=== PATIENT | female | born 1985 | race Hispanic/Latino ===

== ENCOUNTER 2018-01-24 11:05 | Emergency (ER) | payer MEDICAID ==
[2018-01-24 11:16] VITALS: BP 133/73
[2018-01-24] MEDS ORDERED: ROCEPHIN IM ONE (12:50)
[2018-01-24] MEDS ORDERED: FLAGYL PO ONE (12:50)
[2018-01-24] MEDS ORDERED: ZITHROMAX PO ONE (12:50)
[2018-01-24] MEDS ORDERED: XYLOCAINE 1% MPF 5 mL INFILTRATI ONE (12:50)
[2018-01-24] MEDS ORDERED: TYLENOL PO ONE (12:50)
--- NOTE | 2018-01-24 13:12 | Emergency Department Report ---
Chief Complaint: Hyperglycemia Stated Complaint: BLOOD SUGAR ABNORMAL Time Seen by Provider: 01/24/18 12:26 - HPI History of Present Illness: The patient is a 32-year-old female with a history of diabetes, on insulin, and whom presents for evaluation of vaginal discharge and abdominal cramping. The patient reports 3 days of thick white vaginal discharge similar to previous yeast infections. She states that she has also spent some cramping of the lower belly for the same period of time. Has secondary complaint of recurrent hyperglycemia for the past couple of days. The patient denies fever, chills, night sweats, diarrhea, blood in the stool, dark tarry stool, dysuria, hematuria , flank pain, vaginal bleeding, inability to pass flatus. - Exam Vital Signs: Vital Signs 01/24/18 11:11 Temperature 98.1 F Pulse Rate 91 H Respiratory 18 Rate Blood Pressure 133/73 O2 Sat by Pulse 99 Oximetry MSE screening note: Focused history and physical exam performed. Due to findings the following was ordered: ED Disposition for MSE Condition: Stable Prescriptions: Fluconazole [Diflucan TAB] 150 mg PO ONCE #1 tablet metroNIDAZOLE [Flagyl] 500 mg PO Q12HR #14 tab Referrals: PRIMARY CARE, [Primary Care Provider] - 3-5 Days
[2018-01-24] MEDS ORDERED: ZOFRAN ODT ONE (13:41)
[2018-01-24] MEDS ORDERED: ZOFRAN ODT PO ONE (13:45)
--- NOTE | 2018-01-24 14:25 | Emergency Department Report ---
ED Female HPI - General Chief complaint: Hyperglycemia Stated complaint: BLOOD SUGAR ABNORMAL Time Seen by Provider: 01/24/18 12:26 Source: patient Mode of arrival: Ambulatory Limitations: No Limitations - History of Present Illness Initial comments: This is a 32-year-old female that presents with vaginal discharge and elevated blood sugars for the past 3-4 days. Patient is a type I diabetic they can Novolin R insulin 30-50 units daily. She is followed by aircraft cleaner Dr. Keller. Patient reports giving herself 80 units yesterday she could not get her sugars below to 280s. She noticed increase of thick white discharge past 2 days and has been taking Monistat with no improvement of symptoms. Patient reports discharge has increased since using Monistat with a foul odor. Denies fever, chills, night sweats, diarrhea, blood in the stool, dark tarry stool, dysuria, hematuria, flank pain, vaginal bleeding, inability to pass flatus. MD Complaint: vaginal discharge (quite) -: days(s) (3-4 days) Location: labia Radiation: non-radiating Severity: mild Severity scale (0 -10): 3 Consistency: constant Improves with: none Worsens with: none Are you Now?: No Last Menstrual Period: 12/22/17 EDC: 09/28/18 Associated Symptoms: vaginal discharge - Related Data Sexually active: Yes : 3 Para: 2 A: 1 Previous Rx's Medication Instructions Recorded Last Taken Type RX: metroNIDAZOLE [Flagyl TAB] 500 mg PO Q12HR 7 Days #14 tab 01/24/18 Unknown Rx Sulfamethoxazole/Trimethoprim 1 each PO BID 3 Days #6 tablet 01/24/18 Unknown Rx [Bactrim DS TAB] Allergies Allergy/AdvReac Type Severity Reaction Status Date / Time No Known Allergies Allergy Unverified 01/24/18 11:16 ED Review of Systems ROS: Stated complaint: BLOOD SUGAR ABNORMAL Other details as noted in HPI Constitutional: denies: chills, fever Respiratory: denies: cough, shortness of breath, wheezing Cardiovascular: denies: chest pain, palpitations Gastrointestinal: denies: abdominal pain, nausea, vomiting, diarrhea Genitourinary: discharge (thick white). denies: urgency, dysuria Neurological: denies: headache, weakness, paresthesias Psychiatric: denies: anxiety, depression ED Past Medical Hx - Past Medical History Previous Medical History?: Yes Hx Diabetes: Yes - Surgical History Past Surgical History?: No - Social History Smoking Status: Never Smoker Substance Use Type: Prescribed - Medications Home Medications: Home Medications Medication Instructions Recorded Confirmed Last Taken Type RX: metroNIDAZOLE [Flagyl TAB] 500 mg PO Q12HR 7 Days #14 tab 01/24/18 Unknown Rx Sulfamethoxazole/Trimethoprim 1 each PO BID 3 Days #6 tablet 01/24/18 Unknown Rx [Bactrim DS TAB] ED Physical Exam - General Limitations: No Limitations General appearance: alert, in no apparent distress - Respiratory Respiratory exam: Present: normal lung sounds bilaterally. Absent: respiratory distress - Cardiovascular Cardiovascular Exam: Present: regular rate, normal rhythm, normal heart sounds. Absent: systolic murmur, diastolic murmur, rubs, gallop - GI/Abdominal GI/Abdominal exam: Present: soft, normal bowel sounds. Absent: distended, tenderness, guarding, rebound, rigid, organomegaly, mass - Neurological Exam Neurological exam: Present: alert, oriented X3, normal gait - Psychiatric Psychiatric exam: Present: normal affect, normal mood - Skin Skin exam: Present: warm, dry, intact, normal color. Absent: rash ED Course Vital Signs 01/24/18 11:11 Temperature 98.1 F Pulse Rate 91 H Respiratory 18 Rate Blood Pressure 133/73 O2 Sat by Pulse 99 Oximetry ED Medical Decision Making - Medical Decision Making This is a 32 y.o. female presents with vaginal discharge and hyperglycemia for 4 days. Patient was examined by me and Dr. Roa. History of type 1 diabetes. Obtained a UA, urine hcg, and glucose. WBC's and nitrates in UA. Glucose 50. Given 2 orange juice and peanut butter in ER. Rechecked BG 149. Discussed results with patient. Empirically treated for STD exposure with Rocephin 250 mg IM and azithromycin 1 g. Start bactrim DS and metronidazole 500 mg po bid x 7 days. Discharged home in stable condition. Discussed prevention options. F/U with PCP or Health Department. Critical care attestation.: If time is entered above; I have spent that time in minutes in the direct care of this critically ill patient, excluding procedure time. ED Disposition Clinical Impression: Exposure to STD, Hypoglycemia Acute cystitis Qualifiers: Hematuria presence: without hematuria Qualified Code(s): N30.00 - Acute cystitis without hematuria Disposition: TO HOME OR SELFCARE Is pt being admited?: No Does the pt Need Aspirin: No Condition: Stable Instructions: Bacterial Vaginosis (ED), Urinary Tract Infection in Women (ED), Diabetic Hypoglycemia (ED) Additional Instructions: Avoid drinking alcohol for 24 hours. Increase fluid intake. Continue safe sexual intercourse. Never discontinue insulin without discussion with doctor. Low blood sugar is often accompanied by symptoms such as tachycardia, sweating, shakiness, intense hunger, or confusion, and must be dealt with promptly by eating a carbohydrate such as apple or drink juice. After self-treatment, blood sugar should be checked if possible. Return to ER or f/u with ER promptly is blood glucose drops below 70 or greater than 150 so that therapy may be adjusted. Eat a carbohydrate snack prior to exercise if blood glucose is less than 100. Follow up with Primary Care Provider or health department in 2-3 days. Prescriptions: RX: metroNIDAZOLE [Flagyl TAB] 500 mg PO Q12HR 7 Days #14 tab Sulfamethoxazole/Trimethoprim [Bactrim DS TAB] 1 each PO BID 3 Days #6 tablet Referrals: [facility] [Outside] - 3-5 Days [facility] [Outside] - 3-5 Days [facility] [Outside] - 3-5 Days Time of Disposition: 15:10 Print Language: [place]
[2018-01-24 14:58] LABS: Bilirubin,Urine NEG (Negative); Blood,Urine NEG (Negative); Color,Urine Yellow (Yellow); Mucus,Urine FEW /HPF; Protein,Urine <15 mg/dL mg/dL (Negative); Urobilinogen,Urine < 2.0 mg/dL (<2.0)
[2018-01-24 15:00] LABS: HCG Qualitative,Urine Negative (Negative)
== END 2018-01-24 16:26 | disposition home or self-care (01) ==
LOC: ED 11:05
DX: E10.649 Type 1 diabetes mellitus with hypoglycemia without coma (principal); N30.00 Acute cystitis without hematuria; Z20.2 Contact with and (suspected) exposure to infections with a predominantly sexual mode of transmission
CPT/HCPCS: 81001; 81025; 82962; 96372; 99283; J0696; Q0162

== ENCOUNTER 2018-01-25 13:37 | Emergency (ER) | payer MEDICAID ==
[2018-01-25] MEDS ORDERED: NACL 0.9% 1000 ML 1,000 ML ONE (13:46)
[2018-01-25] MEDS ORDERED: PEPCID IV ONE ×2 (13:47→13:52)
--- NOTE | 2018-01-25 13:49 | Emergency Department Report ---
ED Allergic Reaction HPI - General Chief complaint: Allergic Reaction Stated complaint: ALLERGIC REACTION Time Seen by Provider: 01/25/18 13:49 Source: patient Mode of arrival: Ambulatory Limitations: No Limitations - History of Present Illness Initial Comments: Patient says she was recently diagnosed with bacterial vaginosis, she was given him Bactrim and Flagyl which she started taking this morning. About an hour ago she started having red rash all over body itching. She denies any known allergies to medications. MD Complaint: allergic reaction, hives -: Sudden, This afternoon Exposure: medication (Bactrim or Flagyl) Symptoms: rash, itching Severity: moderate Treatment Prior to Arrival: none Previous Allergy History: none - Related Data Previous Rx's Medication Instructions Recorded Last Taken Type Fluconazole [Diflucan] 150 mg PO DAILY #1 tablet 01/24/18 Unknown Rx Sulfamethoxazole/Trimethoprim 1 each PO BID 3 Days #6 tablet 01/24/18 Unknown Rx [Bactrim DS TAB] metroNIDAZOLE [Flagyl TAB] 500 mg PO Q12HR 7 Days #14 tab 01/24/18 Unknown Rx Famotidine [Pepcid] 20 mg PO BID #10 tablet 01/25/18 Unknown Rx Nitrofurantoin Monohyd/M-Cryst 100 mg PO BID #14 capsule 01/25/18 Unknown Rx [Macrobid 100 mg Capsule] Prednisone [predniSONE] 40 mg PO QDAY 5 Days tab 01/25/18 Unknown Rx Allergies Allergy/AdvReac Type Severity Reaction Status Date / Time No Known Allergies Allergy Unverified 01/24/18 11:16 ED Review of Systems ROS: Stated complaint: ALLERGIC REACTION Other details as noted in HPI Comment: All other systems reviewed and negative Constitutional: denies: chills, fever, weakness Eyes: denies: vision change ENT: denies: ear pain, dental pain Respiratory: denies: cough, orthopnea, shortness of breath Cardiovascular: denies: chest pain, palpitations Endocrine: no symptoms reported Gastrointestinal: denies: abdominal pain, nausea, vomiting, diarrhea Genitourinary: denies: dysuria, frequency Musculoskeletal: denies: back pain Skin: rash, change in color (Difussed redness.), pruritus Neurological: denies: headache, weakness, numbness, paresthesias Psychiatric: anxiety. denies: depression Hematological/Lymphatic: denies: easy bleeding, easy bruising ED Past Medical Hx - Past Medical History Hx Diabetes: Yes - Social History Smoking Status: Never Smoker Substance Use Type: Prescribed - Medications Home Medications: Home Medications Medication Instructions Recorded Confirmed Last Taken Type Fluconazole [Diflucan] 150 mg PO DAILY #1 tablet 01/24/18 Unknown Rx Sulfamethoxazole/Trimethoprim 1 each PO BID 3 Days #6 tablet 01/24/18 Unknown Rx [Bactrim DS TAB] metroNIDAZOLE [Flagyl TAB] 500 mg PO Q12HR 7 Days #14 tab 01/24/18 Unknown Rx Famotidine [Pepcid] 20 mg PO BID #10 tablet 01/25/18 Unknown Rx Nitrofurantoin Monohyd/M-Cryst 100 mg PO BID #14 capsule 01/25/18 Unknown Rx [Macrobid 100 mg Capsule] Prednisone [predniSONE] 40 mg PO QDAY 5 Days tab 01/25/18 Unknown Rx ED Physical Exam - General Limitations: No Limitations General appearance: alert, anxious - Head Head exam: Present: atraumatic, normocephalic, normal inspection - Eye Eye exam: Present: normal appearance, PERRL, EOMI Pupils: Present: normal accommodation - ENT ENT exam: Present: normal exam, normal orophraynx, mucous membranes moist - Neck Neck exam: Present: normal inspection, full ROM. Absent: tenderness - Respiratory Respiratory exam: Present: normal lung sounds bilaterally. Absent: wheezes, rhonchi - Cardiovascular Cardiovascular Exam: Present: tachycardia, normal heart sounds - GI/Abdominal GI/Abdominal exam: Present: soft, normal bowel sounds. Absent: tenderness, guarding, rebound - Extremities Exam Extremities exam: Present: normal inspection, full ROM, normal capillary refill. Absent: tenderness - Back Exam Back exam: Present: normal inspection, full ROM - Neurological Exam Neurological exam: Present: alert, oriented X3, CN II-XII intact - Psychiatric Psychiatric exam: Present: anxious - Skin Skin exam: Present: warm, dry, intact, rash, erythema, urticaria ED Course Vital Signs 01/25/18 01/25/18 01/25/18 13:58 15:33 15:40 Temperature 98.4 F Pulse Rate 136 H 68 Respiratory 22 18 Rate Blood Pressure 132/83 O2 Sat by Pulse 99 99 Oximetry - Reevaluation(s) Reevaluation #1: 01/25/18 16:28 Patient says she is feeling much better and her hives has resolved. She wants to go home. ED Medical Decision Making - Lab Data Result diagrams: 01/25/18 14:06 01/25/18 14:06 - Radiology Data Radiology results: report reviewed - Medical Decision Making Allergic reaction. Critical care attestation.: If time is entered above; I have spent that time in minutes in the direct care of this critically ill patient, excluding procedure time. ED Disposition Clinical Impression: Allergic reaction caused by a drug Qualifiers: Encounter type: initial encounter Qualified Code(s): T78.40XA - Allergy, unspecified, initial encounter Allergic reaction Qualifiers: Encounter type: initial encounter Qualified Code(s): T78.40XA - Allergy, unspecified, initial encounter Urinary tract infection Qualifiers: Urinary tract infection type: acute cystitis Hematuria presence: without hematuria Qualified Code(s): N30.00 - Acute cystitis without hematuria Clinical Impression: (Ruled Out): Allergic reaction of correct medicinal substance properly administered Disposition: - TO HOME OR SELFCARE Is pt being admited?: No Does the pt Need Aspirin: No Condition: Stable Instructions: Urticaria (ED), Allergies (ED), Anaphylaxis (ED), Urinary Tract Infection in Women (ED) Additional Instructions: Please follow up with her primary care provider. Return to the emergency room if your condition worsens. Prescriptions: Famotidine [Pepcid] 20 mg PO BID #10 tablet Nitrofurantoin Monohyd/M-Cryst [Macrobid 100 mg Capsule] 100 mg PO BID #14 capsule Prednisone [predniSONE] 40 mg PO QDAY 5 Days tab Time of Disposition: 16:33
[2018-01-25] MEDS ORDERED: NACL 0.9% 1000 ML 1,000 ML IV ONE (13:50)
[2018-01-25 14:23] LABS: Basophils # (Auto) 0.1 K/mm3 (0.0-0.1); Basophils % (Auto) 0.5 % (0.0-1.8); Eosinophils # (Auto) 0.2 K/mm3 (0.0-0.4); Eosinophils % (Auto) 1.4 % (0.0-4.3); Hematocrit 41.3 % (30.3-42.9); Hemoglobin 13.2 gm/dl (10.1-14.3); Lymphocytes # (Auto) 3.7 K/mm3 (1.2-5.4); Lymphocytes % (Auto) 30.1 % (13.4-35.0); Mean Corpuscular HGB Conc 32 % (30-34); Mean Corpuscular Hemoglobin 29 pg (28-32); Mean Corpuscular Volume 90 fl (79-97); Monocytes # (Auto) 0.6 K/mm3 (0.0-0.8); Monocytes % (Auto) 4.6 % (0.0-7.3); Platelet Count 270 K/mm3 (140-440); Red Blood Count 4.58 M/mm3 (3.65-5.03); Red Cell Distribution Width 13.9 % (13.2-15.2)
[2018-01-25 14:36] LABS: Albumin 3.4 g/dL (3.9-5); BUN/Creatinine Ratio 13; Blood Urea Nitrogen 8 mg/dL (7-17); Calcium 8.3 mg/dL (8.4-10.2); Hemolysis Index 99
[2018-01-25 14:54] LABS: Alanine Aminotransferase 18 units/L (7-56)
[2018-01-25 15:49] LABS: Bilirubin,Urine NEG (Negative); Blood,Urine NEG (Negative); Color,Urine Yellow (Yellow); Protein,Urine <15 mg/dL mg/dL (Negative); Urobilinogen,Urine < 2.0 mg/dL (<2.0)
[2018-01-25 15:56] LABS: HCG Qualitative,Urine Negative (Negative)
[2018-01-25 16:38] VITALS: BP 93/55
== END 2018-01-25 16:47 | disposition home or self-care (01) ==
LOC: ED 13:37
DX: N39.0 Urinary tract infection, site not specified (principal); T78.40XA Allergy, unspecified, initial encounter; X58.XXXA Exposure to other specified factors, initial encounter; E11.9 Type 2 diabetes mellitus without complications
CPT/HCPCS: 36415; 80053; 81001; 81025; 85025; 96361; 96374; 96375; 99283; J2930; J7030